=== PATIENT | female | born 1940 | race Caucasian/White ===

== ENCOUNTER → 2018-12-23 | Outpatient (CLI) | payer MEDICARE ==
--- NOTE | 2018-12-23 13:05 | Diagnostic Imaging Report ---
EXAMINATION: ANKLE 3 + VIEWS RIGHT INDICATION: Ankle pain COMPARISON: None FINDINGS: AP lateral and mortise views of the right ankle were obtained. No acute fracture or dislocation. The ankle mortise is intact and symmetric. Mild soft tissue swelling along the lateral aspect of the ankle. No substantial joint effusion. There is an exaggerated plantar arch. Achilles enthesopathy and prominent plantar calcaneal spur. IMPRESSION: Mild right ankle soft tissue swelling with no underlying acute osseous injury. Achilles enthesopathy and prominent plantar calcaneal spur. Signed by: Oscar Jain MD on 12/23/2018 1:02 PM
== END ==
LOC: RAD 12:08
PROVIDERS: ATTEND Family Medicine
DX: S93.401D Sprain of unspecified ligament of right ankle, subsequent encounter (principal)

== ENCOUNTER → 2020-02-24 | Outpatient (CLI) | payer MEDICARE ==
--- NOTE | 2020-02-24 11:31 | Diagnostic Imaging Report ---
Exam: Right knee 3 views, tibia 2 views, and ankle 3 views History: Pain Comparison: None. Findings: No acute fracture. Narrowing of the medial tibiofemoral compartment of the with chondrocalcinosis. Extensor mechanism enthesophytes. Small joint effusion. Bone demineralization. Ankle joint space preserved. Mild midfoot degenerative arthrosis. Dorsal and plantar calcaneal enthesophytes. Impression: No acute osseous abnormality Knee joint degenerative arthrosis with chondrocalcinosis Signed by: Dr. Yovany Weeks M.D. on 02/24/2020 11:28 AM
== END ==
LOC: RAD 10:45
PROVIDERS: ATTEND Family Medicine
DX: S83.91XA Sprain of unspecified site of right knee, initial encounter (principal); S93.401A Sprain of unspecified ligament of right ankle, initial encounter; M79.661 Pain in right lower leg

== ENCOUNTER → 2020-02-27 | Outpatient (CLI) | payer MEDICARE | LOC: RAD 16:03 | PROVIDERS: ATTEND Family Medicine | DX: M79.604 Pain in right leg (principal); M79.89 Other specified soft tissue disorders | CPT/HCPCS: 93971 ==